=== PATIENT | male | born 1980 | race Caucasian/White ===

== ENCOUNTER 2021-04-20 01:41 | Emergency (ER) | payer OTHER ==
[~2021-04-20 01:41] MED LIST: KEFLEX500 MG PO
== END 2021-04-20 06:57 | disposition left against medical advice (07) ==
LOC: ER1 01:41
DX: Z53.21 Procedure and treatment not carried out due to patient leaving prior to being seen by health care provider (principal)

== ENCOUNTER 2021-11-29 20:54 | Emergency (ER) | payer OTHER | END 2021-11-29 21:10 | disposition left against medical advice (07) | LOC: ER1 20:54 | DX: Z53.21 Procedure and treatment not carried out due to patient leaving prior to being seen by health care provider (principal) ==